=== PATIENT | female | born 1985 | race Two or more races ===

== ENCOUNTER 2016-12-07 15:49 | Emergency (ER) | payer MEDICAID ==
[~2016-12-07] VITALS: Ht 157.5 cm; Wt 75.7 kg
[2016-12-07 16:30] LABS: APPEARANCE,URINE Clear (CLEAR); BILIRUBIN,URINE Negative (NEGATIVE); BLOOD, URINE Large Ery/uL (NEGATIVE); COLOR,URINE Yellow (YELLOW); KETONES,URINE Trace (NEGATIVE); LEUKOCYTE ESTERASE ,URINE Negative (NEGATIVE); NITRITE, URINE Negative (NEGATIVE); PH,URINE 6.5 (5.0-8.0); PROTEIN,URINE Trace mg/dl (NEGATIVE); UGLUCOSE Negative (NEGATIVE); UROBILINOGEN,URINE 0.2 EU/dL (0.2)
[2016-12-07 16:32] LABS: PREGNANCY TEST URINE QUAL NEGATIVE (NEGATIVE)
[2016-12-07 16:41] LABS: BACTERIA,URINE Few /HPF (None Seen); SQUAMOUS EPITHELIAL CELL,UR Few /HPF (None Seen)
--- NOTE | 2016-12-07 16:49 | NUR ---
ASSISTED JAI CONLEY FOR PE AT BS.
[2016-12-07 17:58] VITALS: BP 121/77
--- NOTE | 2016-12-07 17:58 | NUR ---
Patient discharged to home in stable condition. Written and verbal after care instructions given. Patient verbalizes understanding of instruction.
--- NOTE | 2016-12-07 17:58 | NUR ---
Patient discharged to home in stable condition. Written and verbal after care instructions given. Patient verbalizes understanding of instruction.
[2016-12-09 13:15] LABS: *NEISSERIA GONORRHOEAE NAA Negative (Negative); CHLAMYDIA TRACHOMATIS NAA Negative (Negative)
== END 2016-12-07 18:01 | disposition home or self-care (01) ==
LOC: ER 15:50
DX: B37.3 Candidiasis of vulva and vagina (principal); R82.99 Other abnormal findings in urine; Z87.19 Personal history of other diseases of the digestive system; Z88.2 Allergy status to sulfonamides; Z88.6 Allergy status to analgesic agent
CPT/HCPCS: 81000-TC; 84703-TC; 87086-TC; 87210-TC; 87491; 87591; A4606; Z7610

== ENCOUNTER 2018-10-15 12:42 | Emergency (ER) | payer MEDICAID, OTHER ==
[~2018-10-15] VITALS: Ht 157.5 cm; Wt 77.1 kg
[2018-10-15 13:11] VITALS: BP 115/69
== END 2018-10-15 14:00 | disposition home or self-care (01) ==
LOC: ER 12:42
DX: L73.9 Follicular disorder, unspecified (principal); Z88.2 Allergy status to sulfonamides; Z88.6 Allergy status to analgesic agent; Z88.8 Allergy status to other drugs, medicaments and biological substances; Z60.2 Problems related to living alone

== ENCOUNTER 2018-11-25 23:02 | Emergency (ER) | payer OTHER ==
[~2018-11-25] VITALS: Ht 154.9 cm; Wt 81.6 kg
[2018-11-25 23:09] VITALS: BP 126/79
== END 2018-11-25 23:29 | disposition home or self-care (01) ==
LOC: ER 23:09
DX: S90.562A Insect bite (nonvenomous), left ankle, initial encounter (principal); S70.361A Insect bite (nonvenomous), right thigh, initial encounter; F10.10 Alcohol abuse, uncomplicated; Y90.9 Presence of alcohol in blood, level not specified; Z88.2 Allergy status to sulfonamides; Z88.6 Allergy status to analgesic agent; Z88.5 Allergy status to narcotic agent; Z60.2 Problems related to living alone; W57.XXXA Bitten or stung by nonvenomous insect and other nonvenomous arthropods, initial encounter; Y93.89 Activity, other specified; Y92.89 Other specified places as the place of occurrence of the external cause; Y99.8 Other external cause status

== ENCOUNTER → 2018-11-26 | Emergency (ER) | payer OTHER ==
[~2018-11-26] VITALS: Ht 154.9 cm; Wt 83.9 kg
[2018-11-26 10:24] VITALS: BP 133/100
--- NOTE | 2018-11-26 11:00 | NUR ---
DC HOME INSTRUCTION GIVEN AGREES TO CALL PMD I N2 DAYS VERBALIZED
== END | disposition home or self-care (01) ==
LOC: ER 10:21
DX: S90.562A Insect bite (nonvenomous), left ankle, initial encounter (principal); Z88.2 Allergy status to sulfonamides; Z88.6 Allergy status to analgesic agent; Z88.8 Allergy status to other drugs, medicaments and biological substances; Z60.2 Problems related to living alone; W57.XXXA Bitten or stung by nonvenomous insect and other nonvenomous arthropods, initial encounter; Y93.89 Activity, other specified; Y92.89 Other specified places as the place of occurrence of the external cause; Y99.8 Other external cause status

== ENCOUNTER 2019-01-23 14:17 | Emergency (ER) | payer OTHER ==
[~2019-01-23] VITALS: Ht 157.5 cm; Wt 79.4 kg
--- NOTE | 2019-01-23 14:32 | NUR ---
PT CAME IN COMPLAINING OF L TOE SWELLING AND PAIN 10/22. PT AAOX4, VSS, BREATHING EVEN AND UNLABORED ON ROOM AIR. PT CONNECTED TO THE MONITOR AND POX.
[2019-01-23] MEDS ORDERED: methylPREDNISolone SOD SUCC 125 MG/2ML VIAL ONE (14:57)
[2019-01-23] MEDS ORDERED: KETOROLAC TROMETHAMINE INJ 60 MG/2 ML VIAL IM ONE ×2 (14:57→15:00)
[2019-01-23] MEDS ORDERED: methylPREDNISolone SOD SUCC 125 MG/2ML VIAL IM ONE (15:00)
--- NOTE | 2019-01-23 16:21 | NUR ---
Patient discharged to home in stable condition. Written and verbal after care instructions given. Patient verbalizes understanding of instruction.
[2019-01-23 16:22] VITALS: BP 127/84
== END 2019-01-23 16:24 | disposition home or self-care (01) ==
LOC: ER 14:22
DX: M79.671 Pain in right foot (principal); Z88.2 Allergy status to sulfonamides; Z88.6 Allergy status to analgesic agent; Z60.2 Problems related to living alone
CPT/HCPCS: 73630; 84703; 96372 ×2; 99284; J1885; J2930

== ENCOUNTER 2019-09-29 14:48 | Emergency (ER) | payer OTHER ==
[~2019-09-29] VITALS: Ht 170.2 cm; Wt 81.6 kg
[2019-09-29 14:50] VITALS: BP 138/74
[2019-09-29] MEDS ORDERED: FLUORESCEIN SODIUM OPHTH 1 EA STRIP ONE (15:11)
[2019-09-29] MEDS ORDERED: FLUORESCEIN SODIUM OPHTH 1 EA STRIP OP ONE (15:30)
[2019-09-29] MEDS ORDERED: TETRACAINE HCL 0.5% OPHTALMIC 15 ML BOTTLE OP ONE (15:30)
--- NOTE | 2019-09-29 16:19 | NUR ---
Patient discharged to home in stable condition. Written and verbal after care instructions given. Patient verbalizes understanding of instruction.
== END 2019-09-29 16:21 | disposition home or self-care (01) ==
LOC: ER 14:48
DX: B02.30 Zoster ocular disease, unspecified (principal); Z88.2 Allergy status to sulfonamides; Z88.6 Allergy status to analgesic agent; Z88.8 Allergy status to other drugs, medicaments and biological substances; Z60.2 Problems related to living alone

== ENCOUNTER 2020-01-23 11:11 | Emergency (ER) | payer OTHER ==
[~2020-01-23] VITALS: Ht 157.5 cm; Wt 81.6 kg
[2020-01-23 11:28] VITALS: BP 151/83
--- NOTE | 2020-01-23 11:52 | NUR ---
NOT HAPPY BECAUSE DR KEENAN DIDN'T PRESCRIBE ANYTHING FOR HER TONSILS. ACCORDING TO DR KEENAN, THEY ARE ENLARGED BUT NOT INFECTED. ADVISED TO F/U WITH ENT
== END 2020-01-23 11:56 | disposition home or self-care (01) ==
LOC: ER 11:19
DX: H69.83 Other specified disorders of Eustachian tube, bilateral (principal); Z88.2 Allergy status to sulfonamides; Z88.6 Allergy status to analgesic agent; Z88.5 Allergy status to narcotic agent; Z60.2 Problems related to living alone

== ENCOUNTER 2021-01-26 11:14 | Emergency (ER) | payer OTHER ==
[~2021-01-26] VITALS: Ht 157.5 cm; Wt 74.8 kg
[2021-01-26 11:19] VITALS: BP 110/71
[2021-01-26] MEDS ORDERED: DOXY100C2 PO (11:26)
[2021-01-26] MEDS ORDERED: CEPH500C2 PO (11:26)
--- NOTE | 2021-01-26 11:34 | NUR ---
Patient discharged to home in stable condition. Written and verbal after care instructions given. Patient verbalizes understanding of instruction.
== END 2021-01-26 11:34 | disposition home or self-care (01) ==
LOC: ER 11:18
DX: L03.211 Cellulitis of face (principal); Z88.2 Allergy status to sulfonamides; Z88.6 Allergy status to analgesic agent; Z88.8 Allergy status to other drugs, medicaments and biological substances; Z60.2 Problems related to living alone; Z79.899 Other long term (current) drug therapy

== ENCOUNTER 2021-11-16 16:15 | Emergency (ER) | payer OTHER ==
[~2021-11-16] VITALS: Ht 160 cm; Wt 79.8 kg
[~2021-11-16 16:15] MED LIST: CEPH500C2 PO; DOXY100C2 PO
[2021-11-16 16:21] VITALS: BP 119/75
[2021-11-16] MEDS ORDERED: IBUPROFEN 600 MG TABLET ONE (18:17)
[2021-11-16] MEDS ORDERED: IBUPROFEN 600 MG TABLET PO ONE (18:30)
--- NOTE | 2021-11-16 19:25 | NUR ---
Patient discharged to home in stable condition. Written and verbal after care instructions given. Patient verbalizes understanding of instruction.
== END 2021-11-16 19:26 | disposition home or self-care (01) ==
LOC: ER 16:18
DX: S63.502A Unspecified sprain of left wrist, initial encounter (principal); Z88.2 Allergy status to sulfonamides; Z88.6 Allergy status to analgesic agent; X58.XXXA Exposure to other specified factors, initial encounter; Y93.89 Activity, other specified; Y92.89 Other specified places as the place of occurrence of the external cause; Y99.8 Other external cause status
CPT/HCPCS: 73110

== ENCOUNTER 2024-07-17 11:07 | Emergency (ER) | payer OTHER ==
[~2024-07-17] VITALS: Ht 160 cm; Wt 75.3 kg
[2024-07-17 11:08] VITALS: BP 145/85; TEMP 98.3
[2024-07-17] MEDS ORDERED: AMOX-427 PO (11:27)
[2024-07-17 11:34] VITALS: O2SAT 99
== END 2024-07-17 11:35 | disposition home or self-care (01) ==
LOC: ER 11:19
DX: I88.9 Nonspecific lymphadenitis, unspecified (principal); Z79.899 Other long term (current) drug therapy; Z87.11 Personal history of peptic ulcer disease; Z88.2 Allergy status to sulfonamides; Z88.5 Allergy status to narcotic agent; Z60.2 Problems related to living alone